=== PATIENT | male | born 1975 | race Two or more races ===

== ENCOUNTER 2019-01-11 17:33 | Emergency (ER) | payer SELFPAY ==
[2019-01-11 17:47] VITALS: BP 130/86
[2019-01-11] MEDS ORDERED: IBUPROFEN 800 MG TABLET PO ONE (18:08)
[2019-01-11] MEDS ORDERED: ACETAMINOPHEN 325 MG TABLET PO ONE (18:09)
--- NOTE | 2019-01-11 18:49 | RADIOLOGY REPORT (SQ) ---
EXAM DESCRIPTION: FOREARM RIGHT COMPLETED DATE/TIME: 01/11/2019 6:24 pm REASON FOR STUDY: pain COMPARISON: None. NUMBER OF VIEWS: Two views. TECHNIQUE: Two radiographic images acquired of the right forearm, including elbow and wrist in at le ast one projection. LIMITATIONS: None. FINDINGS: MINERALIZATION: Normal. BONES: No acute fracture. No worrisome bone lesions. SOFT TISSUES: No obvious swelling or foreign body. OTHER: No other significant finding. IMPRESSION: NO RADIOGRAPHIC EVIDENCE OF ACUTE INJURY. TECHNICAL DOCUMENTATION: JOB ID: [id number] [place]-72 2010 [employer]- All Rights Reserved Reading location - IP/workstation name: [email or web address]
--- NOTE | 2019-01-11 19:02 | RADIOLOGY REPORT (SQ) ---
EXAM DESCRIPTION: ELBOW RIGHT OVER 2 VIEWS COMPLETED DATE/TIME: 01/11/2019 6:24 pm REASON FOR STUDY: pain COMPARISON: None. EXAM PARAMETERS: NUMBER OF VIEWS: Four views. TECHNIQUE: AP, lateral and oblique radiographic images acquired of the right elbow. LIMITATIONS: None. FINDINGS: MINERALIZATION: Normal. BONES: No dislocation. Questionable cortical buckle in the dorsal radial neck is seen best on the la teral oblique projection. No other fracture identified. JOINTS: Small effusion. SOFT TISSUES: No significant soft tissue swelling. No radiopaque foreign body. OTHER: No other significant finding. IMPRESSION: Questionable cortical buckle in the dorsal radial neck is seen best on the lateral obli que projection. Small effusion. No other fracture identified. TECHNICAL DOCUMENTATION: JOB ID: [id number] [place]-72 2010 [employer]- All Rights Reserved Reading location - IP/workstation name: [email or web address]
[2019-01-11] MEDS ORDERED: HYDROCODONE/ACETAMINOPHEN 5-325 MG (6 TAB/ER DISP) PO PRN (19:12)
--- NOTE | 2019-01-11 19:13 | ER Document Report ---
ED Extremity Problem, Upper - General Chief Complaint: Arm Injury Stated Complaint: FALL/RIGHT ARM,ELBOW,HAND PAIN Time Seen by Provider: 01/11/19 18:05 Primary Care Provider: KHARI THOMSON MD [ACTIVE PROVISIONAL STAFF] - Follow up as needed Notes: Pt. is a 43 y/o male presents to the ED for right elbow and forearm pain. Stated approximately an hour prior to arrival he tripped and fell onto a outstretched arm. Patient voices initially had pain in his right forearm but now has more so pain in his right elbow. Patient's denying any clavicle pain or shoulder pain. Patient's denying any loss of consciousness or vomiting. States most of his pain is in the right elbow and "moving down to my wrist." Patient is currently driving, does not have a ride, narcotics withheld. TRAVEL OUTSIDE OF THE [place] IN LAST 30 DAYS: No - Related Data Allergies/Adverse Reactions: No Known Allergies Allergy (Verified 01/11/19 18:04) Past Medical History - General Information source: Patient - Social History Smoking Status: Former Smoker Frequency of alcohol use: Occasional Drug Abuse: None Family History: Reviewed & Not Pertinent Patient has suicidal ideation: No Patient has homicidal ideation: No Review of Systems - Review of Systems Constitutional: denies: Fever EENT: No symptoms reported Cardiovascular: No symptoms reported Respiratory: No symptoms reported Gastrointestinal: No symptoms reported Genitourinary: No symptoms reported Male Genitourinary: No symptoms reported Musculoskeletal: See HPI Skin: No symptoms reported Hematologic/Lymphatic: No symptoms reported Neurological/Psychological: No symptoms reported Physical Exam - Vital signs Vitals: Temp Pulse Resp BP Pulse Ox 98.0 F 58 L 18 130/86 H 96 01/11/19 17:45 01/11/19 17:45 01/11/19 17:45 01/11/19 17:45 01/11/19 17:45 - Notes Notes: GENERAL: Alert, interacts well. No acute distress. HEAD: Normocephalic, atraumatic. EYES: Pupils equal, round, and reactive to light. Extraocular movements intact. ENT: Oral mucosa moist, tongue midline. NECK: Full range of motion. Supple. Trachea midline. LUNGS: Clear to auscultation bilaterally, no wheezes, rales, or rhonchi. No respiratory distress. HEART: Regular rate and rhythm. No murmur ABDOMEN: Soft, non-tender. Non-distended. Bowel sounds present in all 4 quadrants. EXTREMITIES: Moves all 4 extremities spontaneously. Swelling noted right elbow, normal radial and dorsalis pedis pulses bilaterally. No cyanosis. Right radial, ulnar, medial nerves intact. No snuffbox tenderness noted right upper extremity. Full range of motion right shoulder, right wrist. BACK: no cervical, thoracic, lumbar midline tenderness. No saddle anesthesia, normal distal neurovascular exam. NEUROLOGICAL: Alert and oriented x3. Normal speech. cranial nerves II through XII grossly intact PSYCH: Normal affect, normal mood. SKIN: Warm, dry, normal turgor. No rashes or lesions noted. Course - Re-evaluation Re-evalutation: 01/11/19 19:10 Elbow X-Ray 01/11/19 18:08 IMPRESSION: Questionable cortical buckle in the dorsal radial neck is seen best on the lateral oblique projection. Small effusion. No other fracture identified. Forearm X-Ray 01/11/19 18:08 IMPRESSION: NO RADIOGRAPHIC EVIDENCE OF ACUTE INJURY. Long-arm posterior splint placed, discussed with patient need for close follow- up with orthopedics. Patient was also given a short dose of narcotics for home use. Discussed continued use of Motrin [id number]. Discussed close return precautions. Patient stable for discharge. - Vital Signs Vital signs: Temp Pulse Resp BP Pulse Ox 98.0 F 58 L 18 130/86 H 96 01/11/19 17:45 01/11/19 17:45 01/11/19 17:45 01/11/19 17:45 01/11/19 17:45 Procedures - Immobilization right elbow Pre-Proc Neuro Vasc Exam: Normal Immobilizer type: Long arm posterior Performed by: Provider assisted Post-Proc Neuro Vasc Exam: Normal Alignment checked and good: Yes Discharge - Discharge Clinical Impression: Radial neck fracture Qualifiers: Encounter type: initial encounter Fracture type: closed Fracture alignment: nondisplaced Laterality: right Qualified Code(s): S52.134A - Nondisplaced fracture of neck of right radius, initial encounter for closed fracture Condition: Stable Disposition: HOME, SELF-CARE Instructions: Fractured Radius ([facility]) Additional Instructions: As we discussed you have been seen and treated in the emergency department for a broken elbow. Please keep splint in place until you follow-up with orthopedics. Phone numbers will be provided in this packet. Please use pain medication only as needed. Please also take [id number] Motrin for generalized pain. Please return to the emergency room for any concerns. Forms: Return to Work Referrals: KHARI THOMSON MD [ACTIVE PROVISIONAL STAFF] - Follow up as needed
== END 2019-01-11 19:41 | disposition home or self-care (01) ==
LOC: ER 17:33
DX: S52.134A Nondisplaced fracture of neck of right radius, initial encounter for closed fracture (principal); W01.0XXA Fall on same level from slipping, tripping and stumbling without subsequent striking against object, initial encounter
CPT/HCPCS: 99283